=== PATIENT | male | born 1970 | race Caucasian/White ===

== ENCOUNTER 2016-06-27 17:22 | Emergency (ER) | payer OTHER ==
[~2016-06-27] VITALS: Ht 170.2 cm; Wt 94.4 kg
[2016-06-27 17:29] VITALS: BP 114/77
== END 2016-06-27 20:21 | disposition home or self-care (01) ==
LOC: EME 17:22 → EXP 17:22
PROC: 0HQDXZZ Repair Right Lower Arm Skin, External Approach (ICD-10-PCS; principal; 2016-06-27)
PROC: 3E0234Z Introduction of Serum, Toxoid and Vaccine into Muscle, Percutaneous Approach (ICD-10-PCS; 2016-06-27)
DX: S51.811A Laceration without foreign body of right forearm, initial encounter (principal); S30.0XXA Contusion of lower back and pelvis, initial encounter; V00-Y99 External causes of morbidity; Y93.23 Activity, snow (alpine) (downhill) skiing, snowboarding, sledding, tobogganing and snow tubing; Z23 Encounter for immunization
CPT/HCPCS: 73090; 99281; 99284